=== PATIENT | female | born 1965 | race Caucasian/White ===

== ENCOUNTER → 2016-08-25 | Outpatient (CLI) | payer OTHER ==
--- NOTE | 2016-08-25 14:13 | MA ---
Diagnostic Digital Mammogram With iCAD Analysis Clinical Indications: Patient reports a painful palpable lump in the inferior right breast. The patie nt has had prior benign right breast biopsies. Technique: Standard cephalocaudal and mediolateral oblique projections were obtained. Skin markers ar e placed on right breast biopsy scars and the palpable lump in the inferior right breast is also kvng ed. This examination was processed by the iCAD computer aided detection system. Comparison: Mammographic studies August 2015, August 2014, July 2012, June 2011, April 16. Also, the patient has had previous breast ultrasounds demonstrating cysts. Breast density: Type C; Heterogeneously dense. Findings: CAD was reviewed. The painful symptomatic area is a nodular asymmetry which has increased i n size. No spiculated masses are identified. No suspicious microcalcifications are seen. The heteroge neous left breast glandular pattern is stable. Impression: Palpable, symptomatic lesion in the inferior right breast requires further evaluation, BI -RADS 0. Recommendation: Targeted right breast ultrasound which will be subsequently performed today. [facility] will send a result letter to the patient.
--- NOTE | 2016-08-25 18:01 | US ---
Right Breast Ultrasound History: Evaluate painful palpable nodule in the inferior right breast. Technique: Longitudinal and transverse images were obtained utilizing a 15 MHz transducer. Color Dop pler evaluation is employed for assessment of vascularity. Examination is interpreted in conjunction with diagnostic mammography performed earlier today. Findings: The palpable area is easily identified on physical examination. Sonographic interrogation d emonstrates a large simple cyst measuring 2.0 x 1.6 cm. Prominent fibroglandular tissue is noted and other simple cysts are incidentally identified.. Impression: Benign findings when considering mammographic and sonographic assessment, BI-RADS 2. Recommendation: Resume routine mammographic screening in one year as long as physical examination is stable. Findings and follow-up recommendations were reviewed with the patient in detail. [facility] will send a result letter to the patient.
== END ==
LOC: FIMAGING 12:29
PROVIDERS: ATTEND Nurse Practitioner Women's Health
DX: Z12.39 Encounter for other screening for malignant neoplasm of breast (principal); N63 Unspecified lump in breast
CPT/HCPCS: G0204

== ENCOUNTER → 2018-01-02 | Outpatient (CLI) | payer OTHER | LOC: FIMAGING 10:19 | PROVIDERS: ATTEND Nurse Practitioner Women's Health | DX: Z12.31 Encounter for screening mammogram for malignant neoplasm of breast (principal) ==